=== PATIENT | male | born 1935 | race Caucasian/White ===

== ENCOUNTER 2017-06-15 00:36 | Emergency (ER) | payer MEDICARE, OTHER ==
[2017-06-15] MEDS: HYDROmorphONE 1 MG/ML SYG IV (03:06)
[2017-06-15] MEDS: ONDANSETRON 4 MG INJ IV (03:06)
[2017-06-15] MEDS: SOD CHLORIDE 0.9% 1,000 ML IV (03:07)
[2017-06-15 04:10] LABS: ADD MAN DIFF? NO
[2017-06-15 04:14] LABS: WHITE BLOOD COUNT 11.9 10^3/ul (4.8-10.8)
[2017-06-15 04:14] LABS: ABNORMAL IP MESSAGE 1; BASOPHILS % 0.2 % (0.0-2.0); EOSINOPHILS % 0.2 % (0.0-7.0); HEMATOCRIT 34.4 % (42.0-52.0); HEMOGLOBIN 11.1 g/dl (14.0-18.0); LYMPHOCYTES # 0.5 10^3/ul (0.8-2.9); LYMPHOCYTES % 4.4 % (15.0-51.0); MEAN CORPUSCULAR HEMOGLOBIN 29.7 pg (29.0-33.0); MEAN CORPUSCULAR HGB CONC 32.3 g/dl (32.0-37.0); MEAN PLATELET VOLUME 11.1 fl (7.4-10.4); MONOCYTE # 1.2 10^3/ul (0.3-0.9); NEUTROPHIL # 10.1 10^3/ul (1.6-7.5); NEUTROPHILS % 84.9 % (39.0-77.0); PLATELET COUNT 245 10^3/UL (140-415); POSITIVE DIFF @See below; RED BLOOD COUNT 3.74 10^6/ul (4.70-6.10); RED CELL DISTRIBUTION WIDTH 14.9 % (11.5-14.5)
[2017-06-15] MEDS: BARIUM SULF 2% 450 ML BTL (BERRY SMOOTHIE) PO (04:19)
[2017-06-15] MEDS: ACETAMINOPHEN 500 MG TAB PO (04:25)
[2017-06-15 04:32] LABS: ALANINE AMINOTRANSFERASE 305 IU/L (13-69); ALBUMIN 4.2 g/dl (3.3-4.9); ALBUMIN/GLOBULIN RATIO 1.75; ALKALINE PHOSPHATASE 95 IU/L (42-121); ANION GAP 17 (8-16); ASPARTATE AMINO TRANSFERASE 389 IU/L (15-46); BILIRUBIN,INDIRECT 0.3 mg/dl (0-1.1); BILIRUBIN,TOTAL 0.3 mg/dl (0.2-1.3); BLOOD UREA NITROGEN 27 mg/dl (7-20); CALCIUM 9.2 mg/dl (8.4-10.2); CARBON DIOXIDE 22 mmol/L (21-31); CHLORIDE 108 mmol/L (97-110); CREATININE 1.16 mg/dl (0.61-1.24); GLUCOSE 174 mg/dl (70-220); LIPASE 49 U/L (23-300); POTASSIUM 4.1 mmol/L (3.5-5.1); SODIUM 143 mmol/L (135-144); TOTAL PROTEIN 6.6 g/dl (6.1-8.1)
[2017-06-15 04:50] LABS: ADD UMIC YES; UR ASCORBIC ACID NEGATIVE (NEGATIVE); UR BILIRUBIN (Dip) NEGATIVE (NEGATIVE); UR BLOOD (Dip) 1+ mg/dL (NEGATIVE); UR CLARITY CLEAR (CLEAR); UR COLOR YELLOW (YELLOW); UR GLUCOSE (Dip) NEGATIVE (NEGATIVE); UR KETONES (Dip) NEGATIVE (NEGATIVE); UR LEUKOCYTE ESTERASE (Dip) NEGATIVE Leu/ul (NEGATIVE); UR NITRITE (Dip) NEGATIVE (NEGATIVE); UR RBC 4 /HPF (0-5); UR SPECIFIC GRAVITY (Dip) 1.021 (1.003-1.030); UR TOTAL PROTEIN (Dip) 1+ mg/dl (NEGATIVE); UR UROBILINOGEN (Dip) 1+ mg/dL (NEGATIVE); UR WBC 1 /HPF (0-5)
[2017-06-15] MEDS: SOD CHLORIDE 0.9% 100 ML (06:28)
[2017-06-15] MEDS: IODIXANOL LOCM 100 ML BTL (06:28)
[2017-06-15] MEDS: ALBUTEROL/IPRATROPIUM (NEB) 3 ML AMP HHN (09:49)
[2017-06-15] MEDS: LORAZEPAM 2 MG INJ IV (10:31)
== END 2017-06-15 11:10 | disposition home or self-care (01) ==
LOC: E/R 00:36
DX: K80.20 Calculus of gallbladder without cholecystitis without obstruction (principal); K57.30 Diverticulosis of large intestine without perforation or abscess without bleeding
CPT/HCPCS: 36415; 71045; 74177; 80053; 81001; 83690; 85025; 87040; 87086; 87400; 94664; 96374; 96375; 99285-25

== ENCOUNTER 2017-06-16 20:01 | Inpatient (IN) | payer MEDICARE, OTHER ==
[2017-06-17 00:03] LABS: ADD MAN DIFF? NO
[2017-06-17 00:09] LABS: WHITE BLOOD COUNT 6.5 10^3/ul (4.8-10.8)
[2017-06-17 00:09] LABS: BASOPHILS % 0.5 % (0.0-2.0); EOSINOPHILS % 0.6 % (0.0-7.0); HEMATOCRIT 30.9 % (42.0-52.0); HEMOGLOBIN 10.1 g/dl (14.0-18.0); LYMPHOCYTES # 0.7 10^3/ul (0.8-2.9); MEAN CORPUSCULAR HEMOGLOBIN 29.9 pg (29.0-33.0); MEAN CORPUSCULAR HGB CONC 32.7 g/dl (32.0-37.0); MEAN CORPUSCULAR VOLUME 91.4 fl (82.0-101.0); MEAN PLATELET VOLUME 10.7 fl (7.4-10.4); MONOCYTE # 1.1 10^3/ul (0.3-0.9); NEUTROPHIL # 4.6 10^3/ul (1.6-7.5); NEUTROPHILS % 70.9 % (39.0-77.0); PLATELET COUNT 170 10^3/UL (140-415); POSITIVE DIFF @See below; RED BLOOD COUNT 3.38 10^6/ul (4.70-6.10); RED CELL DISTRIBUTION WIDTH 15.3 % (11.5-14.5)
[2017-06-17 00:10] LABS: MONOCYTES % 16.5 % (0.0-11.0)
[2017-06-17 00:34] LABS: INR 1.09; PROTIME 14.3 Sec (11.9-14.9); PT RATIO 1.1
[2017-06-17 00:35] LABS: PARTIAL THROMBOPLASTIN TIME 31.9 Sec (25.0-35.0)
[2017-06-17 00:36] LABS: LACTIC ACID 1.1 mmol/L (0.5-2.0)
[2017-06-17 00:38] LABS: ALANINE AMINOTRANSFERASE 297 IU/L (13-69); ALBUMIN 3.9 g/dl (3.3-4.9); ALBUMIN/GLOBULIN RATIO 1.34; ALKALINE PHOSPHATASE 109 IU/L (42-121); ANION GAP 15 (8-16); ASPARTATE AMINO TRANSFERASE 112 IU/L (15-46); BILIRUBIN,INDIRECT 0.4 mg/dl (0-1.1); BILIRUBIN,TOTAL 0.4 mg/dl (0.2-1.3); BLOOD UREA NITROGEN 22 mg/dl (7-20); CALCIUM 8.9 mg/dl (8.4-10.2); CARBON DIOXIDE 23 mmol/L (21-31); CHLORIDE 104 mmol/L (97-110); CREATININE 1.06 mg/dl (0.61-1.24); GLUCOSE 118 mg/dl (70-220); POTASSIUM 3.8 mmol/L (3.5-5.1); SODIUM 138 mmol/L (135-144); TOTAL PROTEIN 6.8 g/dl (6.1-8.1)
[2017-06-17 00:49] LABS: TROPONIN-I 0.032 ng/ml (0.00-0.12)
[2017-06-17] MEDS ORDERED: ONDANSETRON 4 MG TAB PO (01:00)
[2017-06-17] MEDS ORDERED: ACETAMINOPHEN 325 MG TAB PO (01:00)
[2017-06-17] MEDS ORDERED: NACL 0.9% 3 ML SYG IV (01:00)
[2017-06-17] MEDS: CIPROFLOXACIN 400MG/D5W 200 ML IVPB ×2 (01:00→06:28)
[2017-06-17] MEDS ORDERED: ZOLPIDEM 5 MG TAB PO (01:00)
[2017-06-17] MEDS: PIPER-TAZO 3.375 GM IV (PMX) 100 ML IVPB ×2 (01:00→05:28)
[2017-06-17] MEDS ORDERED: GLUCAGON 1 MG INJ IM (05:30)
[2017-06-17] MEDS ORDERED: GLUCOSE GEL 15 GRAM TUBE BUCCAL (05:30)
[2017-06-17] MEDS ORDERED: GLUCOSE GEL 15 GRAM TUBE PO ×2 (05:30)
[2017-06-17] MEDS ORDERED: DEXTROSE 50% 50 ML SYRINGE IV ×2 (05:30)
[2017-06-17 06:14] LABS: HEMATOCRIT 32.1 % (42.0-52.0); HEMOGLOBIN 10.3 g/dl (14.0-18.0); MEAN CORPUSCULAR HEMOGLOBIN 29.4 pg (29.0-33.0); MEAN CORPUSCULAR HGB CONC 32.1 g/dl (32.0-37.0); MEAN CORPUSCULAR VOLUME 91.7 fl (82.0-101.0); MEAN PLATELET VOLUME 10.7 fl (7.4-10.4); PLATELET COUNT 178 10^3/UL (140-415); POSITIVE DIFF @See below; RED CELL DISTRIBUTION WIDTH 15.1 % (11.5-14.5)
[2017-06-17 06:14] LABS: WHITE BLOOD COUNT 6.3 10^3/ul (4.8-10.8)
[2017-06-17 06:21] LABS: ADD MAN DIFF? YES
[2017-06-17] MEDS: PANTOPRAZOLE (EC) 40 MG TAB PO (06:35)
[2017-06-17 06:46] LABS: LACTIC ACID 1.4 mmol/L (0.5-2.0)
[2017-06-17 06:53] LABS: ALANINE AMINOTRANSFERASE 259 IU/L (13-69); ALBUMIN 3.6 g/dl (3.3-4.9); ALKALINE PHOSPHATASE 108 IU/L (42-121); ANION GAP 14 (8-16); ASPARTATE AMINO TRANSFERASE 89 IU/L (15-46); BILIRUBIN,INDIRECT 0.4 mg/dl (0-1.1); BILIRUBIN,TOTAL 0.4 mg/dl (0.2-1.3); BLOOD UREA NITROGEN 20 mg/dl (7-20); CALCIUM 8.9 mg/dl (8.4-10.2); CARBON DIOXIDE 24 mmol/L (21-31); CHLORIDE 104 mmol/L (97-110); CREATININE 1.01 mg/dl (0.61-1.24); GLUCOSE 115 mg/dl (70-220); POTASSIUM 3.8 mmol/L (3.5-5.1); SODIUM 138 mmol/L (135-144); TOTAL PROTEIN 6.6 g/dl (6.1-8.1)
[2017-06-17 06:55] LABS: B-TYPE NATRIURETIC PEPTIDE 1810 PG/ML (0-450)
[2017-06-17 07:06] LABS: HEMOGLOBIN A1C 6.2 % (0-5.9)
[2017-06-17 07:31] LABS: ADD UMIC YES; UR ASCORBIC ACID NEGATIVE (NEGATIVE); UR BILIRUBIN (Dip) NEGATIVE (NEGATIVE); UR BLOOD (Dip) 1+ mg/dL (NEGATIVE); UR CLARITY CLEAR (CLEAR); UR COLOR YELLOW (YELLOW); UR GLUCOSE (Dip) NEGATIVE (NEGATIVE); UR KETONES (Dip) 1+ mg/dL (NEGATIVE); UR LEUKOCYTE ESTERASE (Dip) NEGATIVE Leu/ul (NEGATIVE); UR NITRITE (Dip) NEGATIVE (NEGATIVE); UR RBC 1 /HPF (0-5); UR SPECIFIC GRAVITY (Dip) 1.017 (1.003-1.030); UR TOTAL PROTEIN (Dip) 1+ mg/dl (NEGATIVE); UR UROBILINOGEN (Dip) NEGATIVE (NEGATIVE); UR WBC 1 /HPF (0-5)
[2017-06-17] MEDS: INSULIN ASPART [NOVOLOG] 3 ML PEN SC ×4 (08:15→20:52)
[2017-06-17 08:56] LABS: LACTIC ACID 0.9 mmol/L (0.5-2.0)
[2017-06-17 09:07] LABS: ANISOCYTOSIS 1+ (0-0); BAND NEUTROPHILS #M 0.7 10^3/ul (0.0-0.6); BAND NEUTROPHILS % (M) 12 % (0-4); EOSINOPHILS % (M) 1 % (0-7); GIANT THROMBO% (M) 3 % (0-0); LYMPHOCYTES #M 0.6 10^3/ul (0.8-2.9); LYMPHOCYTES % (M) 11 % (15-51); MONOCYTE #M 0.3 10^3/ul (0.3-0.9); MONOCYTES % (M) 5 % (0-11); PLATELET ESTIMATE NORMAL; POLYCHROMASIA 2+ (0-0); SEG NEUT #M 4.5 10^3/ul (1.6-7.5); SEGMENTED NEUTROPHILS (M) % 71 % (39-77)
[2017-06-17] MEDS: FLUTICASONE 0.05% 16 GM NAS SPRAY NASAL ×2 (09:35→21:10)
[2017-06-17] MEDS: FINASTERIDE 5 MG TAB PO (09:37)
[2017-06-17] MEDS: DOCUSATE SODIUM 100 MG CAP PO (09:37)
[2017-06-17] MEDS: LOSARTAN 50 MG TAB PO (09:38)
[2017-06-17] MEDS: AMLODIPINE 5 MG TAB PO (09:38)
[2017-06-17] MEDS: FERROUS SULFATE (EC) 325 MG TAB PO (09:38)
[2017-06-17] MEDS: CLOPIDOGREL 75 MG TAB PO (09:38)
[2017-06-17] MEDS: ASPIRIN (EC) 81 MG TAB PO (09:38)
[2017-06-17] MEDS: METOPROLOL (XL) 25 MG TAB PO (09:44)
[2017-06-17] MEDS: POLYETHYLENE GLYCOL 17 GM PACKET PO (09:47)
[2017-06-17] MEDS ORDERED: PIPER-TAZO 3.375 GM IV (PMX) 100 ML IVPB (12:00)
[2017-06-17] MEDS: PIPER-TAZO 3.375 GM IV (PMX) 50 ML IVPB ×3 (13:33→23:16)
[2017-06-17] MEDS ORDERED: VITAMIN A & D 5 GM OINT PACKET TOP (17:03)
[2017-06-17] MEDS ORDERED: CIPROFLOXACIN 400MG/D5W 200 ML IVPB (18:00)
[2017-06-17] MEDS: ATORVASTATIN 10 MG TAB PO (20:49)
[2017-06-17] MEDS: hydrALAzine 20 MG INJ IV ×2 (21:05→22:09)
[2017-06-17] MEDS: PHENOL 1.4% SOLN 180 ML BTL MT ×2 (21:10→23:17)
[2017-06-18] MEDS: ACCU-CHEK XX (02:00)
[2017-06-18] MEDS: hydrALAzine 20 MG INJ IV (04:03)
[2017-06-18] MEDS: PANTOPRAZOLE (EC) 40 MG TAB PO (05:35)
[2017-06-18] MEDS: PIPER-TAZO 3.375 GM IV (PMX) 50 ML IVPB ×2 (05:37→11:56)
[2017-06-18 06:11] LABS: ADD MAN DIFF? NO
[2017-06-18 06:15] LABS: BASOPHILS % 0.5 % (0.0-2.0); EOSINOPHILS # 0.1 10^3/ul (0.0-0.5); EOSINOPHILS % 0.9 % (0.0-7.0); HEMATOCRIT 33.3 % (42.0-52.0); LYMPHOCYTES # 0.8 10^3/ul (0.8-2.9); LYMPHOCYTES % 13.2 % (15.0-51.0); MEAN CORPUSCULAR HEMOGLOBIN 29.6 pg (29.0-33.0); MEAN CORPUSCULAR VOLUME 89.5 fl (82.0-101.0); MEAN PLATELET VOLUME 10.8 fl (7.4-10.4); MONOCYTE # 1.3 10^3/ul (0.3-0.9); MONOCYTES % 22.3 % (0.0-11.0); NEUTROPHIL # 3.7 10^3/ul (1.6-7.5); NEUTROPHILS % 62.4 % (39.0-77.0); PLATELET COUNT 198 10^3/UL (140-415); RED BLOOD COUNT 3.72 10^6/ul (4.70-6.10)
[2017-06-18 06:15] LABS: WHITE BLOOD COUNT 5.8 10^3/ul (4.8-10.8)
[2017-06-18 06:49] LABS: BLOOD UREA NITROGEN 18 mg/dl (7-20); CALCIUM 9.1 mg/dl (8.4-10.2); CARBON DIOXIDE 21 mmol/L (21-31); CHLORIDE 106 mmol/L (97-110); CREATININE 1.07 mg/dl (0.61-1.24); GLUCOSE 126 mg/dl (70-220); SODIUM 139 mmol/L (135-144)
[2017-06-18 07:35] LABS: ANION GAP 16 (8-16)
[2017-06-18 07:39] LABS: POTASSIUM 3.6 mmol/L (3.5-5.1)
[2017-06-18] MEDS: INSULIN ASPART [NOVOLOG] 3 ML PEN SC ×4 (07:54→20:53)
[2017-06-18] MEDS: DOCUSATE SODIUM 100 MG CAP PO (08:00)
[2017-06-18] MEDS: FLUTICASONE 0.05% 16 GM NAS SPRAY NASAL ×2 (08:00→20:49)
[2017-06-18] MEDS: FERROUS SULFATE (EC) 325 MG TAB PO (08:00)
[2017-06-18] MEDS: ASPIRIN (EC) 81 MG TAB PO (08:00)
[2017-06-18] MEDS: LOSARTAN 50 MG TAB PO (08:00)
[2017-06-18] MEDS: METOPROLOL (XL) 25 MG TAB PO ×2 (08:00→20:50)
[2017-06-18] MEDS: POLYETHYLENE GLYCOL 17 GM PACKET PO (08:01)
[2017-06-18] MEDS: FINASTERIDE 5 MG TAB PO (08:01)
[2017-06-18] MEDS: AMLODIPINE 5 MG TAB PO (08:01)
[2017-06-18] MEDS: CLOPIDOGREL 75 MG TAB PO (08:01)
[2017-06-18] MEDS: FUROSEMIDE 40 MG INJ IV (10:06)
[2017-06-18] MEDS: METOPROLOL 25 MG TAB PO (10:06)
[2017-06-18] MEDS: CEPASTAT LOZENGE MT ×4 (11:40→20:54)
[2017-06-18] MEDS: PIPER-TAZO 3.375 GM IV (PMX) 100 ML IVPB (17:57)
[2017-06-18] MEDS: ATORVASTATIN 10 MG TAB PO (20:49)
[2017-06-19] MEDS: PIPER-TAZO 3.375 GM IV (PMX) 100 ML IVPB ×3 (00:45→12:00)
[2017-06-19] MEDS: ACCU-CHEK XX (01:22)
[2017-06-19] MEDS: CEPASTAT LOZENGE MT ×3 (01:22→08:34)
[2017-06-19] MEDS: PANTOPRAZOLE (EC) 40 MG TAB PO (05:49)
[2017-06-19] MEDS: INSULIN ASPART [NOVOLOG] 3 ML PEN SC ×2 (08:12→12:15)
[2017-06-19] MEDS: FERROUS SULFATE (EC) 325 MG TAB PO (08:26)
[2017-06-19] MEDS: METOPROLOL (XL) 25 MG TAB PO (08:26)
[2017-06-19] MEDS: DOCUSATE SODIUM 100 MG CAP PO (08:26)
[2017-06-19] MEDS: CLOPIDOGREL 75 MG TAB PO (08:26)
[2017-06-19] MEDS: FINASTERIDE 5 MG TAB PO (08:26)
[2017-06-19] MEDS: ASPIRIN (EC) 81 MG TAB PO (08:27)
[2017-06-19] MEDS: AMLODIPINE 5 MG TAB PO (08:27)
[2017-06-19] MEDS: LOSARTAN 50 MG TAB PO (08:27)
[2017-06-19] MEDS: POLYETHYLENE GLYCOL 17 GM PACKET PO (08:27)
[2017-06-19] MEDS: FLUTICASONE 0.05% 16 GM NAS SPRAY NASAL (08:28)
== END 2017-06-19 13:05 | disposition home or self-care (01) | DRG 444 ==
LOC: MS2 06-18 10:40 → MS1 06-17 00:42 → MS2 06-18 11:20 → E/R 20:01 → MS2 06-17 04:30
DX: K80.20 Calculus of gallbladder without cholecystitis without obstruction (principal); I50.33 Acute on chronic diastolic (congestive) heart failure; I27.21 Secondary pulmonary arterial hypertension; R78.81 Bacteremia; E11.9 Type 2 diabetes mellitus without complications; B96.20 Unspecified Escherichia coli [E. coli] as the cause of diseases classified elsewhere; E78.5 Hyperlipidemia, unspecified; I11.0 Hypertensive heart disease with heart failure; I73.9 Peripheral vascular disease, unspecified; J06.9 Acute upper respiratory infection, unspecified; K21.9 Gastro-esophageal reflux disease without esophagitis; G47.30 Sleep apnea, unspecified; I25.10 Atherosclerotic heart disease of native coronary artery without angina pectoris; N40.0 Benign prostatic hyperplasia without lower urinary tract symptoms; Z95.5 Presence of coronary angioplasty implant and graft; Z79.84 Long term (current) use of oral hypoglycemic drugs; Z79.02 Long term (current) use of antithrombotics/antiplatelets; Z79.82 Long term (current) use of aspirin
CPT/HCPCS: 36415; 71045; 76705; 78226; 80048; 80053; 81001; 82962; 83036; 83605; 83735; 83880; 84443; 84484; 85025; 85610; 85730; 87040; 87086; 93005; 93306; 94660; 99217; 99285-25

== ENCOUNTER 2017-07-09 13:58 | Outpatient (CLI) | payer MEDICARE, OTHER | END 2017-07-09 15:32 | disposition home or self-care (01) | LOC: HPC 13:58 | DX: R78.81 Bacteremia (principal); I25.10 Atherosclerotic heart disease of native coronary artery without angina pectoris | CPT/HCPCS: G0463 ==

== ENCOUNTER → 2017-07-14 | Outpatient (CLI) | payer MEDICARE, OTHER | END | disposition home or self-care (01) | LOC: U/S 11:13 | DX: R78.81 Bacteremia (principal); K82.9 Disease of gallbladder, unspecified | CPT/HCPCS: 76705 ==

== ENCOUNTER 2017-07-16 15:43 | Outpatient (CLI) | payer MEDICARE, OTHER | END 2017-07-16 15:54 | disposition home or self-care (01) | LOC: HPC 15:43 | DX: K76.0 Fatty (change of) liver, not elsewhere classified (principal) | CPT/HCPCS: G0463 ==

== ENCOUNTER 2018-02-18 06:40 | Day surgery (SDC) | payer MEDICARE, OTHER ==
[2018-02-18] MEDS ORDERED: SOD CHLORIDE 0.9% 1,000 ML IV ×2 (09:00→12:49)
[2018-02-18 09:06] LABS: ADD MAN DIFF? NO
[2018-02-18 09:12] LABS: BASOPHILS % 0.5 % (0.0-2.0); EOSINOPHILS # 0.1 10^3/ul (0.0-0.5); EOSINOPHILS % 1.3 % (0.0-7.0); HEMATOCRIT 36.2 % (42.0-52.0); HEMOGLOBIN 11.5 g/dl (14.0-18.0); LYMPHOCYTES # 1.6 10^3/ul (0.8-2.9); LYMPHOCYTES % 25.4 % (15.0-51.0); MEAN CORPUSCULAR HEMOGLOBIN 29.4 pg (29.0-33.0); MEAN CORPUSCULAR HGB CONC 31.8 g/dl (32.0-37.0); MEAN CORPUSCULAR VOLUME 92.6 fl (82.0-101.0); MEAN PLATELET VOLUME 10.1 fl (7.4-10.4); MONOCYTE # 0.9 10^3/ul (0.3-0.9); MONOCYTES % 15.1 % (0.0-11.0); NEUTROPHIL # 3.5 10^3/ul (1.6-7.5); NEUTROPHILS % 57.4 % (39.0-77.0); PLATELET COUNT 237 10^3/UL (140-415); RED BLOOD COUNT 3.91 10^6/ul (4.70-6.10); RED CELL DISTRIBUTION WIDTH 14.3 % (11.5-14.5)
[2018-02-18 09:12] LABS: WHITE BLOOD COUNT 6.1 10^3/ul (4.8-10.8)
[2018-02-18 09:37] LABS: ALANINE AMINOTRANSFERASE 12 IU/L (13-69); ALBUMIN 3.6 g/dl (3.3-4.9); ALBUMIN/GLOBULIN RATIO 1.16; ALKALINE PHOSPHATASE 52 IU/L (42-121); ANION GAP 13 (8-16); ASPARTATE AMINO TRANSFERASE 43 IU/L (15-46); BILIRUBIN,INDIRECT 0.4 mg/dl (0-1.1); BILIRUBIN,TOTAL 0.4 mg/dl (0.2-1.3); BLOOD UREA NITROGEN 25 mg/dl (7-20); CALCIUM 9.5 mg/dl (8.4-10.2); CARBON DIOXIDE 28 mmol/L (21-31); CHLORIDE 107 mmol/L (97-110); CREATININE 1.18 mg/dl (0.61-1.24); GLUCOSE 110 mg/dl (70-220); POTASSIUM 4.9 mmol/L (3.5-5.1); SODIUM 143 mmol/L (135-144); TOTAL PROTEIN 6.7 g/dl (6.1-8.1)
[2018-02-18 09:46] LABS: INR 0.99; PROTIME 13.2 Sec (11.9-14.9)
[2018-02-18 09:47] LABS: PARTIAL THROMBOPLASTIN TIME 30.9 Sec (23.0-35.0)
[2018-02-18] MEDS ORDERED: IODIXANOL LOCM 100 ML BTL ×3 (10:31→12:21)
[2018-02-18] MEDS ORDERED: HEPARIN 1000 UNITS/NS (A-LINE) 1,000 ML (10:31)
[2018-02-18] MEDS ORDERED: LIDOCAINE 1% (MDV) 20 ML INJ (10:31)
[2018-02-18] MEDS ORDERED: FENTAnyl 50 MCG/ML VIAL (10:32)
[2018-02-18] MEDS ORDERED: MIDAZOLAM 1 MG/ML 2 ML INJ (10:32)
[2018-02-18] MEDS ORDERED: AL HYDROX/MG HYDROX/SIMETH 30 ML CUP PO (13:00)
[2018-02-18] MEDS ORDERED: ONDANSETRON 4 MG INJ IV (13:00)
[2018-02-18] MEDS ORDERED: ACETAMINOPHEN 325 MG TAB PO (13:00)
[2018-02-18] MEDS ORDERED: HOLD all METFORMIN and METFORMIN CONTAINING medications for 48 hours post procedure. Chec XX (13:00)
[2018-02-18] MEDS ORDERED: hydrALAzine 20 MG INJ IV (17:00)
== END 2018-02-18 18:10 | disposition home or self-care (01) ==
LOC: SDS 06:40
DX: I73.9 Peripheral vascular disease, unspecified (principal); I25.10 Atherosclerotic heart disease of native coronary artery without angina pectoris
CPT/HCPCS: 36246; 75630; 75716; 80053; 82962; 85025; 85610; 85730

== ENCOUNTER 2018-03-29 06:26 | Emergency (ER) | payer MEDICARE, OTHER | END 2018-03-29 08:30 | disposition home or self-care (01) | LOC: E/R 06:26 | DX: S16.1XXA Strain of muscle, fascia and tendon at neck level, initial encounter (principal); M62.838 Other muscle spasm; I25.10 Atherosclerotic heart disease of native coronary artery without angina pectoris; X58.XXXA Exposure to other specified factors, initial encounter; Y92.9 Unspecified place or not applicable; Z79.01 Long term (current) use of anticoagulants; Z79.82 Long term (current) use of aspirin; Z85.46 Personal history of malignant neoplasm of prostate; Z87.891 Personal history of nicotine dependence | CPT/HCPCS: 99283 ==